=== PATIENT | female | born 1980 | race American Indian/Alaskan Native ===

== ENCOUNTER 2017-07-04 08:07 | Emergency (ER) | payer OTHER ==
[2017-07-04 08:29] VITALS: BP 148/109
[2017-07-04] MEDS ORDERED: TORADOL IM ONE (08:48)
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
--- NOTE | 2017-07-04 09:28 | XRay Report ---
LUMBOSACRAL SPINE, 3 VIEWS: History: Back pain Findings: The vertebral bodies, disk spaces and posterior elements are intact. No compression deformity or malalignment. The SI joints are symmetric and unremarkable. Impression: 1. No evidence for acute injury to the lumbar spine.
== END 2017-07-04 09:57 | disposition home or self-care (01) ==
LOC: ED 08:07
DX: S33.5XXA Sprain of ligaments of lumbar spine, initial encounter (principal); I10 Essential (primary) hypertension; G43.909 Migraine, unspecified, not intractable, without status migrainosus; X58.XXXA Exposure to other specified factors, initial encounter; Y93.89 Activity, other specified; Y92.89 Other specified places as the place of occurrence of the external cause; Y99.8 Other external cause status
CPT/HCPCS: 72100; 96372; 99283; J1885

== ENCOUNTER 2017-11-23 09:22 | Emergency (ER) | payer OTHER ==
--- NOTE | 2017-11-23 09:53 | Emergency Department Report ---
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 She presents with lightheadedness. She felt Just out of sorts. When walking she felt as if her equilibrium was off. She denies paralysis or paresthesias. However she is concerned that her blood pressure was elevated. She takes nifedipine 60 mg once a day. She has history of hypertension. She has a history of peripartum cardiomyopathy. She is followed by a billing collections specialist every 6 months. She also has a history of anemia. She is not compliant with iron therapy due to constipation. She was recently had a physical by her PCP in September. She stated that her blood work was fine at that time. She's had for days of sinus congestion. She has chronic sinusitis. She has recurrent sinus infections as well as allergic rhinitis. She denies headache. Denies chest pain. She just feels "a little off". Mostly feels lightheaded. - Related Data Home Medications Medication Instructions Recorded Confirmed Last Taken Lisinopril/Hydrochlorothiazide 07/16/13 07/16/13 07/16/13 [Zestoretic 10-12.5 mg] Topiramate [Topamax] 25 mg PO 07/16/13 07/16/13 Unknown traMADol [Ultram 50 MG tab] 50 mg 07/16/13 07/16/13 07/16/13 Previous Rx's Medication Instructions Recorded Last Taken Type Acetaminophen/Codeine [Tylenol #3] 1 tab PO Q6H PRN #12 tab 07/16/13 Unknown Rx Ciprofloxacin HCl [Cipro] 500 mg PO Q12H #30 tab 07/16/13 Unknown Rx Azithromycin [Zithromax Z-RACHAEL] 250 mg PO DAILY #6 tablet 01/30/14 Unknown Rx Cyclobenzaprine HCl [Flexeril 5 MG 5 mg PO TID #14 tab 07/04/17 Unknown Rx TAB] Naproxen [Naprosyn] 500 mg PO BID #10 tablet 07/04/17 Unknown Rx Fluticasone [Flonase] 2 spray NS QDAY #1 bottle 11/23/17 Unknown Rx NIFEdipine [] 90 mg PO DAILY #30 tablet 11/23/17 Unknown Rx Allergies Allergy/AdvReac Type Severity Reaction Status Date / Time amoxicillin [Amoxicillin] Allergy Rash Verified 07/16/13 15:38 ED Review of Systems ROS: Stated complaint: HIGH BP Other details as noted in HPI Comment: All other systems reviewed and negative Constitutional: denies: fever Respiratory: denies: cough Cardiovascular: denies: chest pain ED Past Medical Hx - Past Medical History Previous Medical History?: Yes Hx Hypertension: Yes Hx Headaches / Migraines: Yes Additional medical history: Peripartum cardiomyopathy - Surgical History Past Surgical History?: Yes Additional Surgical History: fibriod tumer - Social History Smoking Status: Never Smoker Substance Use Type: None - Medications Home Medications: Home Medications Medication Instructions Recorded Confirmed Last Taken Type Acetaminophen/Codeine [Tylenol #3] 1 tab PO Q6H PRN #12 tab 07/16/13 Unknown Rx Ciprofloxacin HCl [Cipro] 500 mg PO Q12H #30 tab 07/16/13 Unknown Rx Lisinopril/Hydrochlorothiazide 07/16/13 07/16/13 07/16/13 History [Zestoretic 10-12.5 mg] Topiramate [Topamax] 25 mg PO 07/16/13 07/16/13 Unknown History traMADol [Ultram 50 MG tab] 50 mg 07/16/13 07/16/13 07/16/13 History Azithromycin [Zithromax Z-RACHAEL] 250 mg PO DAILY #6 tablet 01/30/14 Unknown Rx Cyclobenzaprine HCl [Flexeril 5 MG 5 mg PO TID #14 tab 07/04/17 Unknown Rx TAB] Naproxen [Naprosyn] 500 mg PO BID #10 tablet 07/04/17 Unknown Rx Fluticasone [Flonase] 2 spray NS QDAY #1 bottle 11/23/17 Unknown Rx NIFEdipine [] 90 mg PO DAILY #30 tablet 11/23/17 Unknown Rx ED Physical Exam - General Limitations: No Limitations General appearance: alert, in no apparent distress - Head Head exam: Present: atraumatic, normocephalic - Eye Eye exam: Present: normal appearance, PERRL, EOMI - ENT ENT exam: Present: normal orophraynx, mucous membranes moist - Neck Neck exam: Present: normal inspection. Absent: meningismus - Respiratory Respiratory exam: Present: normal lung sounds bilaterally. Absent: respiratory distress, wheezes, rales, rhonchi - Cardiovascular Cardiovascular Exam: Present: regular rate, normal rhythm. Absent: systolic murmur, diastolic murmur, rubs, gallop - GI/Abdominal GI/Abdominal exam: Present: soft, normal bowel sounds. Absent: distended, tenderness, guarding, rebound - Extremities Exam Extremities exam: Present: normal inspection - Back Exam Back exam: Present: normal inspection - Neurological Exam Neurological exam: Present: alert, oriented X3, CN II-XII intact, normal gait. Absent: motor sensory deficit - Psychiatric Psychiatric exam: Present: normal affect, normal mood - Skin Skin exam: Present: warm, dry, intact, normal color. Absent: rash ED Course Vital Signs 11/23/17 09:31 Temperature 98.8 F Pulse Rate 87 Respiratory 20 Rate Blood Pressure 160/101 O2 Sat by Pulse 98 Oximetry ED Medical Decision Making - Lab Data Result diagrams: 11/23/17 10:17 11/23/17 10:17 - Medical Decision Making Office Britton is a very pleasant 36-year-old female with history of hypertension, anemia and peripartum cardiomyopathy who presents with lightheadedness. Differential diagnosis includes hypertensive urgency versus anemia versus sinusitis/allergic rhinitis. No indication of CVA. No indication of end organ damage from hypertension. I will increase her nifedipine dose from 60 mg to 90 mg daily. She is still . So continuing Nifedipine would be the optimal treatment at this time. Also prescribed Flonase for chronic sinusitis versus allergic rhinitis. Critical care attestation.: If time is entered above; I have spent that time in minutes in the direct care of this critically ill patient, excluding procedure time. ED Disposition Clinical Impression: Hypertensive urgency, Allergic rhinitis Disposition: - TO HOME OR SELFCARE Is pt being admited?: No Does the pt Need Aspirin: No Condition: Stable Instructions: Hypertension (ED), Sinusitis (ED) Prescriptions: Fluticasone [Flonase] 2 spray NS QDAY #1 bottle NIFEdipine [] 90 mg PO DAILY #30 tablet Referrals: PRIMARY CARE, [Primary Care Provider] - 3-5 Days Forms: Work/School Release Form(ED) Time of Disposition: 11:06
[2017-11-23 10:37] LABS: Basophils # (Auto) 0.1 K/mm3 (0.0-0.1); Basophils % (Auto) 0.8 % (0.0-1.8); Eosinophils # (Auto) 0.1 K/mm3 (0.0-0.4); Eosinophils % (Auto) 2.2 % (0.0-4.3); Hematocrit 34.9 % (30.3-42.9); Hemoglobin 11.6 gm/dl (10.1-14.3); Lymphocytes # (Auto) 2.4 K/mm3 (1.2-5.4); Lymphocytes % (Auto) 35.8 % (13.4-35.0); Mean Corpuscular HGB Conc 33 % (30-34); Mean Corpuscular Hemoglobin 29 pg (28-32); Mean Corpuscular Volume 87 fl (79-97); Monocytes # (Auto) 0.5 K/mm3 (0.0-0.8); Monocytes % (Auto) 7.2 % (0.0-7.3); Platelet Count 266 K/mm3 (140-440); Red Cell Distribution Width 13.4 % (13.2-15.2)
[2017-11-23 10:56] LABS: BUN/Creatinine Ratio 18; Blood Urea Nitrogen 9 mg/dL (7-17); Calcium 9.6 mg/dL (8.4-10.2); Hemolysis Index 5
[2017-11-23 11:22] VITALS: BP 158/92
== END 2017-11-23 11:19 | disposition home or self-care (01) ==
LOC: ED 09:22
DX: I10 Essential (primary) hypertension (principal); J30.9 Allergic rhinitis, unspecified; G43.909 Migraine, unspecified, not intractable, without status migrainosus; Z88.1 Allergy status to other antibiotic agents
CPT/HCPCS: 36415; 80048; 85025; 99283

== ENCOUNTER 2018-11-16 10:23 | Emergency (ER) | payer OTHER ==
[2018-11-16 10:29] VITALS: BP 174/105
[2018-11-16] MEDS ORDERED: NORVASC PO ONE (10:41)
[2018-11-16] MEDS ORDERED: IBUPROFEN PO ONE (10:41)
--- NOTE | 2018-11-16 10:48 | Emergency Department Report ---
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 She is currently lactating. She is currently. Consequently, she has been on nifedipine for the last 3 years. For the past 2 days, she has had elevated pressure readings. Hx of headache. Heaache has been more frequent and persistent. Blood pressure taken at fire department 158/106. Blood pressure here in triage 174/105 -: Gradual, days(s) (2) Location: head Quality: aching, other (throbbing) Consistency: intermittent Improves with: none Worsens with: none Associated Symptoms: denies other symptoms - Related Data Home Medications Medication Instructions Recorded Confirmed Last Taken Lisinopril/Hydrochlorothiazide 07/16/13 07/16/13 07/16/13 [Zestoretic 10-12.5 mg] Topiramate [Topamax] 25 mg PO 07/16/13 07/16/13 Unknown traMADol [Ultram 50 MG tab] 50 mg 07/16/13 07/16/13 07/16/13 Previous Rx's Medication Instructions Recorded Last Taken Type Acetaminophen/Codeine [Tylenol #3] 1 tab PO Q6H PRN #12 tab 07/16/13 Unknown Rx Ciprofloxacin HCl [Cipro] 500 mg PO Q12H #30 tab 07/16/13 Unknown Rx Azithromycin [Zithromax Z-RACHAEL] 250 mg PO DAILY #6 tablet 01/30/14 Unknown Rx Cyclobenzaprine HCl [Flexeril 5 MG 5 mg PO TID #14 tab 07/04/17 Unknown Rx TAB] Naproxen [Naprosyn] 500 mg PO BID #10 tablet 07/04/17 Unknown Rx Fluticasone [Flonase] 2 spray NS QDAY #1 bottle 11/23/17 Unknown Rx NIFEdipine [] 90 mg PO DAILY #30 tablet 11/23/17 Unknown Rx amLODIPine [Norvasc] 5 mg PO DAILY 30 Days #30 tab 11/16/18 Unknown Rx hydroCHLOROthiazide [HCTZ] 25 mg PO QDAY 30 Days #30 tablet 11/16/18 Unknown Rx Allergies Allergy/AdvReac Type Severity Reaction Status Date / Time amoxicillin [Amoxicillin] Allergy Rash Verified 11/16/18 10:24 ED Review of Systems ROS: Stated complaint: HBP Other details as noted in HPI Comment: All other systems reviewed and negative Constitutional: denies: fever, malaise Respiratory: denies: cough Cardiovascular: denies: chest pain ED Past Medical Hx - Past Medical History Previous Medical History?: Yes Hx Hypertension: Yes Hx Headaches / Migraines: Yes Additional medical history: Peripartum cardiomyopathy - Surgical History Additional Surgical History: fibriod tumor - Social History Smoking Status: Never Smoker Substance Use Type: Alcohol, Prescribed - Medications Home Medications: Home Medications Medication Instructions Recorded Confirmed Last Taken Type Acetaminophen/Codeine [Tylenol #3] 1 tab PO Q6H PRN #12 tab 07/16/13 Unknown Rx Ciprofloxacin HCl [Cipro] 500 mg PO Q12H #30 tab 07/16/13 Unknown Rx Lisinopril/Hydrochlorothiazide 07/16/13 07/16/13 07/16/13 History [Zestoretic 10-12.5 mg] Topiramate [Topamax] 25 mg PO 07/16/13 07/16/13 Unknown History traMADol [Ultram 50 MG tab] 50 mg 07/16/13 07/16/13 07/16/13 History Azithromycin [Zithromax Z-RACHAEL] 250 mg PO DAILY #6 tablet 01/30/14 Unknown Rx Cyclobenzaprine HCl [Flexeril 5 MG 5 mg PO TID #14 tab 07/04/17 Unknown Rx TAB] Naproxen [Naprosyn] 500 mg PO BID #10 tablet 07/04/17 Unknown Rx Fluticasone [Flonase] 2 spray NS QDAY #1 bottle 11/23/17 Unknown Rx NIFEdipine [] 90 mg PO DAILY #30 tablet 11/23/17 Unknown Rx amLODIPine [Norvasc] 5 mg PO DAILY 30 Days #30 tab 11/16/18 Unknown Rx hydroCHLOROthiazide [HCTZ] 25 mg PO QDAY 30 Days #30 tablet 11/16/18 Unknown Rx ED Physical Exam - General Limitations: No Limitations General appearance: alert, in no apparent distress - Head Head exam: Present: atraumatic, normocephalic - Eye Eye exam: Present: normal appearance - ENT ENT exam: Present: mucous membranes moist - Neck Neck exam: Present: normal inspection, full ROM - Respiratory Respiratory exam: Present: normal lung sounds bilaterally. Absent: respiratory distress, wheezes, rales, rhonchi - Cardiovascular Cardiovascular Exam: Present: regular rate, normal rhythm, normal heart sounds. Absent: systolic murmur, diastolic murmur, rubs, gallop - GI/Abdominal GI/Abdominal exam: Present: soft, normal bowel sounds. Absent: distended, tenderness, guarding, rebound - Extremities Exam Extremities exam: Present: normal inspection - Back Exam Back exam: Present: normal inspection - Neurological Exam Neurological exam: Present: alert, oriented X3 - Psychiatric Psychiatric exam: Present: normal affect, normal mood - Skin Skin exam: Present: warm, dry, intact, normal color. Absent: rash ED Course Vital Signs 11/16/18 10:27 Temperature 97.7 F Pulse Rate 94 H Respiratory 18 Rate Blood Pressure 174/105 O2 Sat by Pulse 96 Oximetry ED Medical Decision Making - Medical Decision Making 1. Hypertensive urgency, I explained to Ofc. Britton patel nifedipine is not first line therapy for blood pressure management. Considering the age of her child, her daughter is now age 3, she will stop breast-feeding. She states that her daughter only uses the breast-feeding for comfort. I have prescribed amlodipine and hydrochlorothiazide. She will see her PCP a equal splinting in 2 weeks for blood pressure check. 2. History of frequent headaches. Previous history of migraine headache. Headache is typical previous headache. Mild in severity. Ibuprofen provided here in the ED. Critical care attestation.: If time is entered above; I have spent that time in minutes in the direct care of this critically ill patient, excluding procedure time. ED Disposition Clinical Impression: Hypertensive urgency, Tension headache Disposition: DC-01 TO HOME OR SELFCARE Is pt being admited?: No Does the pt Need Aspirin: No Condition: Stable Instructions: Hypertension (ED), Tension Headache (ED) Prescriptions: hydroCHLOROthiazide [HCTZ] 25 mg PO QDAY 30 Days #30 tablet amLODIPine [Norvasc] 5 mg PO DAILY 30 Days #30 tab Referrals: PRIMARY CARE, [Referring] - 7-10 days
== END 2018-11-16 10:56 | disposition home or self-care (01) ==
LOC: ED 10:23
DX: I16.0 Hypertensive urgency (principal); G44.209 Tension-type headache, unspecified, not intractable; I10 Essential (primary) hypertension; Z88.1 Allergy status to other antibiotic agents
CPT/HCPCS: 99282

== ENCOUNTER 2019-01-20 07:40 | Emergency (ER) | payer OTHER ==
[2019-01-20 07:58] VITALS: BP 137/101
[2019-01-20] MEDS ORDERED: IBUPROFEN PO ONE (07:58)
--- NOTE | 2019-01-20 08:01 | Emergency Department Report ---
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 Diffuse swelling of the ankle noted. States she also twisted her knee. To ER via EMS. VSS. neurovascular intact on arrival. ED Past Medical Hx - Past Medical History Previous Medical History?: Yes Hx Hypertension: Yes Hx Headaches / Migraines: Yes Additional medical history: Peripartum cardiomyopathy - Surgical History Past Surgical History?: Yes Additional Surgical History: fibriod tumor, tubal ligation, UFE - Family History Family history: no significant - Social History Smoking Status: Never Smoker Substance Use Type: None - Medications Home Medications: Home Medications Medication Instructions Recorded Confirmed Last Taken Type Acetaminophen/Codeine [Tylenol #3] 1 tab PO Q6H PRN #12 tab 07/16/13 Unknown Rx Ciprofloxacin HCl [Cipro] 500 mg PO Q12H #30 tab 07/16/13 Unknown Rx Lisinopril/Hydrochlorothiazide 07/16/13 07/16/13 07/16/13 History [Zestoretic 10-12.5 mg] Topiramate [Topamax] 25 mg PO 07/16/13 07/16/13 Unknown History traMADol [Ultram 50 MG tab] 50 mg 07/16/13 07/16/13 07/16/13 History Azithromycin [Zithromax Z-RACHAEL] 250 mg PO DAILY #6 tablet 01/30/14 Unknown Rx Cyclobenzaprine HCl [Flexeril 5 MG 5 mg PO TID #14 tab 07/04/17 Unknown Rx TAB] Naproxen [Naprosyn] 500 mg PO BID #10 tablet 07/04/17 Unknown Rx Fluticasone [Flonase] 2 spray NS QDAY #1 bottle 11/23/17 Unknown Rx NIFEdipine [] 90 mg PO DAILY #30 tablet 11/23/17 Unknown Rx amLODIPine [Norvasc] 5 mg PO DAILY 30 Days #30 tab 11/16/18 Unknown Rx hydroCHLOROthiazide [HCTZ] 25 mg PO QDAY 30 Days #30 tablet 11/16/18 Unknown Rx ED Review of Systems ROS: Stated complaint: TWISTED (R)ANKLE Other details as noted in HPI Comment: All other systems reviewed and negative Physical Exam - Physical Exam Vital Signs: Vital Signs 01/20/19 07:57 Temperature 98.2 F Pulse Rate 82 Respiratory 16 Rate Blood Pressure 137/101 [Left] O2 Sat by Pulse 100 Oximetry Physical Exam: alert and oriented no focal neuro def s1s2 lungs cta abd soft non tender dp plus 2 bilateral diffuse swelling r ankle no pain on joint lines of knee rapid cap refill RLE ED Course Vital Signs 01/20/19 07:57 Temperature 98.2 F Pulse Rate 82 Respiratory 16 Rate Blood Pressure 137/101 [Left] O2 Sat by Pulse 100 Oximetry ED Medical Decision Making - Radiology Data Radiology results: report reviewed, image reviewed - Medical Decision Making xray noted splint/crutches medicated for pain RLE neurovasc intact before and after splint dc home with ortho follow up Vital Signs 01/20/19 01/20/19 07:57 08:17 Temperature 98.2 F Pulse Rate 82 Respiratory 16 18 Rate Blood Pressure 137/101 [Left] O2 Sat by Pulse 100 Oximetry - Differential Diagnosis sp fall ro fracture Critical care attestation.: If time is entered above; I have spent that time in minutes in the direct care of this critically ill patient, excluding procedure time. ED Disposition Clinical Impression: Tibia fracture, Knee pain Disposition: DC-01 TO HOME OR SELFCARE Is pt being admited?: No Does the pt Need Aspirin: No Condition: Stable Instructions: Leg Fracture (ED) Additional Instructions: NON WEIGHT BEARING SPLINT/CRUTCHES ICE/REST/ELEVATE RLE MOTRIN OR TYLENOL FOR PAIN FOLLOW UP WITH ORTHO HOMERO I RECOMMEND FOLLOWING UP WITH EMPLOYER SINCE THIS HAPPENED WHILE AT WORK. RETURN TO WORK WHEN CLEARED BY ORTHO OR PER YOUR JOB INSTRUCTIONS. YOUR BLOOD PRESSURE WAS ELEVATED TODAY WHEN IN PAIN--- PLEASE MONITOR YOUR BLOOD PRESSURE Referrals: LUIS ALBERTO GARRETT MD [Staff Physician] - 3-5 Days Forms: Work/School Release Form(ED) Time of Disposition: 09:01
--- NOTE | 2019-01-20 08:39 | XRay Report ---
BILATERAL KNEES, 3 VIEWS INDICATION: Bilateral knee pain after fall. COMPARISON: None. IMPRESSION: No acute osseous or soft tissue abnormality. No significant DJD. RIGHT ANKLE, 3 VIEWS INDICATION: Right ankle pain after fall. COMPARISON: None. IMPRESSION: A subtle nondisplaced oblique fracture in the distal fibula is identified just proximal to the ankle joint. The distal tibia and talar dome are intact. Mild lateral soft tissue swelling is noted. No significant DJD. Signer Name: Hardy Martin Jr, MD Signed: 01/20/2019 8:34 AM Workstation Name: [id number]
[2019-01-20] MEDS ORDERED: TORADOL IM ONE (09:58)
[2019-01-20] MEDS ORDERED: PERCOCET 5/325 PO ONE (09:58)
== END 2019-01-20 11:18 | disposition home or self-care (01) ==
LOC: ED 07:40
DX: S82.201A Unspecified fracture of shaft of right tibia, initial encounter for closed fracture (principal); I10 Essential (primary) hypertension; G43.909 Migraine, unspecified, not intractable, without status migrainosus; Z98.51 Tubal ligation status; Z79.899 Other long term (current) drug therapy; Z88.1 Allergy status to other antibiotic agents; W18.39XA Other fall on same level, initial encounter; Y93.89 Activity, other specified; Y92.89 Other specified places as the place of occurrence of the external cause; Y99.8 Other external cause status
CPT/HCPCS: 29515; 73562; 73610; 96372; 99284; J1885

== ENCOUNTER 2019-08-10 11:02 | Emergency (ER) | payer BC, OTHER ==
--- NOTE | 2019-08-10 13:02 | Event Note ---
ED Screening Note ED Screening Note: pt presents with dizziness/lightheadedness that began last night states that occasional it feels like the room spinning bilateral temporal headache no n/v/d no vision changes no numbness or weakness no recent illness LNMP: two weeks ago PMHx HTN -amlodipine, took this morning began taking lorazepam a week ago, took it two days ago allergy: amoxicillin This initial assessment/diagnostic orders/clinical plan/treatment(s) is/are subject to change based on patients health status, clinical progression and re- assessment by fellow clinical providers in the ED. Further treatment and workup at subsequent clinical providers discretion. Patient/guardian urged not to elope from the ED as their condition may be serious if not clinically assessed and managed. Initial orders include: UA, urine preg, EKG, labs
[2019-08-10] MEDS ORDERED: MECLIZINE 25 MG TAB PO ONE (13:03)
[2019-08-10] MEDS ORDERED: SODIUM CHLORIDE 0.9% 1000 ML 1,000 ML IV ONE (13:03)
[2019-08-10 13:48] LABS: Bacteria,Urine 1+ /HPF (Negative); Bilirubin,Urine NEG (Negative); Blood,Urine NEG (Negative); Color,Urine Yellow (Yellow); Mucus,Urine FEW /HPF; Protein,Urine <15 mg/dL mg/dL (Negative); Urobilinogen,Urine < 2.0 mg/dL (<2.0); WBC,Urine < 1.0 /HPF (0.0-6.0)
[2019-08-10 13:51] LABS: HCG Qualitative,Urine Negative (Negative)
[2019-08-10 14:26] LABS: Basophils # (Auto) 0.1 K/mm3 (0.0-0.1); Basophils % (Auto) 0.7 % (0.0-1.8); Eosinophils # (Auto) 0.1 K/mm3 (0.0-0.4); Hematocrit 37.5 % (30.3-42.9); Hemoglobin 12.4 gm/dl (10.1-14.3); Lymphocytes # (Auto) 2.8 K/mm3 (1.2-5.4); Lymphocytes % (Auto) 38.5 % (13.4-35.0); Mean Corpuscular HGB Conc 33 % (30-34); Mean Corpuscular Volume 88 fl (79-97); Monocytes # (Auto) 0.4 K/mm3 (0.0-0.8); Monocytes % (Auto) 5.1 % (0.0-7.3); Platelet Count 290 K/mm3 (140-440); Red Blood Count 4.28 M/mm3 (3.65-5.03); Red Cell Distribution Width 13.2 % (13.2-15.2)
[2019-08-10 14:50] LABS: Alanine Aminotransferase 11 units/L (7-56); Albumin 4.5 g/dL (3.9-5); BUN/Creatinine Ratio 15; Blood Urea Nitrogen 9 mg/dL (7-17); Calcium 9.8 mg/dL (8.4-10.2); Hemolysis Index 58
--- NOTE | 2019-08-10 17:03 | Cat Scan Report ---
CT HEAD WITHOUT CONTRAST INDICATION : headache and dizziness. TECHNIQUE: Axial, coronal and sagittal CT imaging was performed from the skull apex through the skul l base without contrast. All CT scans at this location are performed using CT dose reduction for ALA RA by means of automated exposure control. COMPARISON: None available. FINDINGS: PARENCHYMA: No mass, midline shift, hemorrhage, extraaxial collection or acute territorial infarctio n. VENTRICLES: Symmetric and normal in size. SOFT TISSUES: No significant abnormality of the included soft tissues/orbits. BONES: No acute osseous abnormality. SINUSES: No significant abnormality. ADDITIONAL FINDINGS: None. IMPRESSION: 1. No acute intracranial abnormality. Signer Name: Westley Michelle MD Signed: 08/10/2019 4:59 PM Workstation Name: [id number]
--- NOTE | 2019-08-10 17:22 | Emergency Department Report ---
ED Dizziness HPI - General Chief Complaint: Headache Stated Complaint: GENERAL ILLNESS Time Seen by Provider: 08/10/19 12:57 Source: patient Mode of arrival: Ambulatory Limitations: No Limitations - History of Present Illness Initial Comments: This is a 38-year-old female nontoxic, well nourished in appearance, no acute signs of distress presents to the ED with c/o of dizziness and headache. Patient describes headache as diffuse with level of 3 out of 10. Patient denies thunderclap headache. Patient denies any radiation of pain. Patient denies any head trauma. Patient denies any visual changes. Patient denies worse headache. Patient stated that darkness makes headache better and bright lights make the headache worse. Patient stated the dizziness is worsened with position change. Patient denies any numbness, tingling, headache, stiff neck, chest pain, shortness of breathe, numbness or tingling. Denies any visual changes or blurry vision. Stated allergies to amox. MD Complaint: dizziness, lightheadedness, other (headache) -: days(s) Timing: gradual onset Description: sense of movement, lightheadedness History of Same: Yes History of Trauma: No Severity: mild Improves With: remaining still Worsens With: position Associated Symptoms: denies other symptoms. denies: ataxia, chest pain, confusion, cough, diaphoresis, fever/chills, loss of appetite, malaise, rash, seizure, shortness of breath, syncope, weakness - Related Data Home Medications Medication Instructions Recorded Confirmed Last Taken Lisinopril/Hydrochlorothiazide 07/16/13 07/16/13 07/16/13 [Zestoretic 10-12.5 mg] Topiramate [Topamax] 25 mg PO 07/16/13 07/16/13 Unknown traMADoL [Ultram 50 MG tab] 50 mg 07/16/13 07/16/13 07/16/13 Previous Rx's Medication Instructions Recorded Last Taken Type Acetaminophen/Codeine [Tylenol #3] 1 tab PO Q6H PRN #12 tab 07/16/13 Unknown Rx Ciprofloxacin HCl [Cipro] 500 mg PO Q12H #30 tab 07/16/13 Unknown Rx Azithromycin [Zithromax Z-RACHAEL] 250 mg PO DAILY #6 tablet 01/30/14 Unknown Rx Cyclobenzaprine HCl [Flexeril 5 MG 5 mg PO TID #14 tab 07/04/17 Unknown Rx TAB] Naproxen [Naprosyn] 500 mg PO BID #10 tablet 07/04/17 Unknown Rx Fluticasone [Flonase] 2 spray NS QDAY #1 bottle 11/23/17 Unknown Rx NIFEdipine [] 90 mg PO DAILY #30 tablet 11/23/17 Unknown Rx amLODIPine 5 mg PO DAILY 30 Days #30 tab 11/16/18 Unknown Rx hydroCHLOROthiazide [HCTZ] 25 mg PO QDAY 30 Days #30 tablet 11/16/18 Unknown Rx Meclizine [Antivert] 12.5 mg PO BID PRN #10 tablet 08/10/19 Unknown Rx Allergies Allergy/AdvReac Type Severity Reaction Status Date / Time amoxicillin [Amoxicillin] Allergy Rash Verified 11/16/18 10:24 ED Review of Systems ROS: Stated complaint: GENERAL ILLNESS Other details as noted in HPI Constitutional: denies: chills, fever Eyes: denies: eye pain, eye discharge, vision change ENT: denies: ear pain, throat pain Respiratory: denies: cough, shortness of breath, wheezing Cardiovascular: denies: chest pain, palpitations Endocrine: no symptoms reported Gastrointestinal: denies: abdominal pain, nausea, diarrhea Genitourinary: denies: urgency, dysuria, discharge Musculoskeletal: denies: back pain, joint swelling, arthralgia Skin: denies: rash, lesions Neurological: headache, vertigo. denies: weakness, paresthesias Psychiatric: denies: anxiety, depression Hematological/Lymphatic: denies: easy bleeding, easy bruising ED Past Medical Hx - Past Medical History Previous Medical History?: Yes Hx Hypertension: Yes Hx Headaches / Migraines: Yes Additional medical history: Peripartum cardiomyopathy - Surgical History Past Surgical History?: Yes Additional Surgical History: fibriod tumor, tubal ligation, UFE - Social History Smoking Status: Never Smoker Substance Use Type: None - Medications Home Medications: Home Medications Medication Instructions Recorded Confirmed Last Taken Type Acetaminophen/Codeine [Tylenol #3] 1 tab PO Q6H PRN #12 tab 07/16/13 Unknown Rx Ciprofloxacin HCl [Cipro] 500 mg PO Q12H #30 tab 07/16/13 Unknown Rx Lisinopril/Hydrochlorothiazide 07/16/13 07/16/13 07/16/13 History [Zestoretic 10-12.5 mg] Topiramate [Topamax] 25 mg PO 07/16/13 07/16/13 Unknown History traMADoL [Ultram 50 MG tab] 50 mg 07/16/13 07/16/13 07/16/13 History Azithromycin [Zithromax Z-RACHAEL] 250 mg PO DAILY #6 tablet 01/30/14 Unknown Rx Cyclobenzaprine HCl [Flexeril 5 MG 5 mg PO TID #14 tab 07/04/17 Unknown Rx TAB] Naproxen [Naprosyn] 500 mg PO BID #10 tablet 07/04/17 Unknown Rx Fluticasone [Flonase] 2 spray NS QDAY #1 bottle 11/23/17 Unknown Rx NIFEdipine [] 90 mg PO DAILY #30 tablet 11/23/17 Unknown Rx amLODIPine 5 mg PO DAILY 30 Days #30 tab 11/16/18 Unknown Rx hydroCHLOROthiazide [HCTZ] 25 mg PO QDAY 30 Days #30 tablet 11/16/18 Unknown Rx Meclizine [Antivert] 12.5 mg PO BID PRN #10 tablet 08/10/19 Unknown Rx ED Physical Exam - General Limitations: No Limitations General appearance: alert, in no apparent distress - Head Head exam: Present: atraumatic, normocephalic - Eye Eye exam: Present: normal appearance, PERRL, EOMI - ENT ENT exam: Present: mucous membranes moist - Neck Neck exam: Present: normal inspection, full ROM. Absent: tenderness, meningismus, lymphadenopathy - Respiratory Respiratory exam: Present: normal lung sounds bilaterally. Absent: respiratory distress, wheezes, rales, rhonchi, stridor, chest wall tenderness, accessory muscle use, decreased breath sounds, prolonged expiratory - Cardiovascular Cardiovascular Exam: Present: regular rate, normal rhythm, normal heart sounds. Absent: irregular rhythm, systolic murmur, diastolic murmur, rubs, gallop - Extremities Exam Extremities exam: Present: normal inspection, full ROM - Back Exam Back exam: Present: normal inspection, full ROM. Absent: tenderness, CVA tenderness (R), CVA tenderness (L), muscle spasm, paraspinal tenderness, vertebral tenderness, rash noted - Neurological Exam Neurological exam: Present: alert, oriented X3, normal gait - Expanded Neurological Exam Expanded Patient oriented to: Present: person, place, time Cranial nerves: EOM's Intact: Normal, Facial Sensation: Normal Cerebellar function: Finger to Nose: Normal Upper motor neuron: Pronator Drift: Normal, Sensory Extinction: Normal Motor strength exam: RUE: 5, LUE: 5, RLE: 5, LLE: 5 Best Eye Response ([place]): (4) open spontaneously Best Motor Response ([place]): (6) obeys commands Best Verbal Response ([place]): (5) oriented [place] Total: 15 - Psychiatric Psychiatric exam: Present: normal affect, normal mood - Skin Skin exam: Present: warm, dry, intact, normal color. Absent: rash ED Course Vital Signs 08/10/19 08/10/19 13:00 17:18 Temperature 98.2 F 98.3 F Pulse Rate 116 H 95 H Respiratory 18 18 Rate Blood Pressure 157/105 160/103 O2 Sat by Pulse 99 98 Oximetry - Reevaluation(s) Reevaluation #1: 08/10/19 17:34 Patient is speaking in full sentences with no signs of distress noted. ED Medical Decision Making - Lab Data Result diagrams: 08/10/19 13:18 08/10/19 13:18 - Medical Decision Making This is a 25-year-old female that presents with dizziness and headache. Patient is stable and was examined by me. EKG is normal sinus rhythm with no ST abnormalities. Labs are unremarkable. Urine obtained. Orthostatic vital signs obtained and within normal limits. Patient received 1 L of normal saline which she stated his symptoms of dizziness has subsided and resolved. Patient is neurologically stable. CT scan is unremarkable. Labs unremarkable. There is no stiff neck or neck pain. Vital signs are stable. Patient is afebrile. Patient received antivert and 1 L of normal saline which the patient stated that he adache has subsided and resolved. Orthostatic vital signs obtained. Patient was referred to Follow-up with a primary care/neurologist doctor in 3-5 days or if symptoms worsen and continue return to emergency room as soon as possible. At time of discharge, the patient does not seem toxic or ill in appearance. No acute signs of distress noted. Patient agrees to discharge treatment plan of care. No further questions noted by the patient. Critical care attestation.: If time is entered above; I have spent that time in minutes in the direct care of this critically ill patient, excluding procedure time. ED Disposition Clinical Impression: Dizziness Headache Qualifiers: Headache type: unspecified Headache chronicity pattern: episodic headache Intractability: not intractable Qualified Code(s): R51 - Headache Disposition: DC-01 TO HOME OR SELFCARE Is pt being admited?: No Does the pt Need Aspirin: No Condition: Stable Instructions: Dizziness (ED), Acute Headache (ED) Additional Instructions: Follow-up with a primary care doctor in 3-5 days or if symptoms worsen and continue return to emergency room as soon as possible. Follow-up with a primary care/neurologist doctor in 3-5 days or if symptoms worsen and continue return to emergency room as soon as possible. Prescriptions: Meclizine [Antivert] 12.5 mg PO BID PRN #10 tablet PRN Reason: Vertigo Referrals: ARTURO RIVERO MD [Primary Care Provider] - 3-5 Days PRIMARY CAREMD [Referring] - 3-5 Days SAPPHIRE HOLT MD [Staff Physician] - 3-5 Days [facility] [Outside] - 3-5 Days Forms: Work/School Release Form(ED)
[2019-08-10 17:32] VITALS: BP 160/103
== END 2019-08-10 18:50 | disposition home or self-care (01) ==
LOC: ED 11:02
DX: R51 Headache (principal); R42 Dizziness and giddiness; I10 Essential (primary) hypertension; G43.909 Migraine, unspecified, not intractable, without status migrainosus; Z98.51 Tubal ligation status; Z88.0 Allergy status to penicillin; Z88.1 Allergy status to other antibiotic agents
CPT/HCPCS: 36415; 70450; 80053; 81001; 81025; 83735; 84100; 85025; 93005; 93010; 96360; 99284; J7030

== ENCOUNTER 2020-10-18 14:38 | Emergency (ER) | payer BC ==
--- NOTE | 2020-10-18 16:32 | Event Note ---
ED Screening Note Date of service: 10/18/20 Time: 16:31 ED Screening Note: Patient complains of elevated blood pressure with headache and dizziness today This initial assessment/diagnostic orders/clinical plan/treatment(s) is/are subject to change based on patients health status, clinical progression and re- assessment by fellow clinical providers in the ED. Further treatment and workup at subsequent clinical providers discretion. Patient/guardian urged not to elope from the ED as their condition may be serious if not clinically assessed and managed. Initial orders include: Labs EKG
[2020-10-18 17:03] VITALS: BP 191/112
[2020-10-18 17:34] LABS: Basophils % (Auto) 0.4 % (0.0-1.8); Eosinophils # (Auto) 0.3 K/mm3 (0.0-0.4); Eosinophils % (Auto) 3.3 % (0.0-4.3); Hematocrit 38.4 % (30.3-42.9); Hemoglobin 12.6 gm/dl (10.1-14.3); Lymphocytes # (Auto) 3.4 K/mm3 (1.2-5.4); Lymphocytes % (Auto) 43.1 % (13.4-35.0); Mean Corpuscular HGB Conc 33 % (30-34); Mean Corpuscular Volume 90 fl (79-97); Monocytes # (Auto) 0.5 K/mm3 (0.0-0.8); Platelet Count 252 K/mm3 (140-440); Red Blood Count 4.27 M/mm3 (3.65-5.03); Red Cell Distribution Width 13.3 % (13.2-15.2)
[2020-10-18 17:55] LABS: Alanine Aminotransferase 12 units/L (7-56); Albumin 4.6 g/dL (3.9-5); Blood Urea Nitrogen 9 mg/dL (7-17); Calcium 9.7 mg/dL (8.4-10.2); Hemolysis Index 14
[2020-10-18 17:57] LABS: BUN/Creatinine Ratio 15
[2020-10-18] MEDS ORDERED: hydrALAZINE 25 MG TAB PO ONE (20:45)
[2020-10-18] MEDS ORDERED: ACETAMINOPHEN 500 MG TAB PO ONE (20:47)
[2020-10-18] MEDS ORDERED: diphenhydrAMINE 25 MG CAP PO ONE (21:20)
--- NOTE | 2020-10-18 21:21 | Emergency Department Report ---
ED General Adult HPI - General Chief complaint: High BP Stated complaint: ELEVATED BLOOD PRESSURE Source: patient Mode of arrival: Ambulatory Limitations: No Limitations - History of Present Illness Initial comments: Pt is a 39 y/o aaf with hx of htn and recurring sinusitis and sinus headache who presents for sinus headache since this am, pt is followed by primary care Dr. Hinds and ENT. headache is in usual location , and intensity. pain is sharp pressure 5/10 exacerbated by movement and position, pt denies cp no n/v no fever or chills no diaphoresis. pt is a/ox 3, ambulatory with steady gait. - Related Data Home Medications Medication Instructions Recorded Confirmed Last Taken Lisinopril/Hydrochlorothiazide 07/16/13 07/16/13 07/16/13 [Zestoretic 10-12.5 mg] Topiramate [Topamax] 25 mg PO 07/16/13 07/16/13 Unknown traMADoL [Ultram 50 MG tab] 50 mg 07/16/13 07/16/13 07/16/13 Previous Rx's Medication Instructions Recorded Last Taken Type Acetaminophen/Codeine [Tylenol #3] 1 tab PO Q6H PRN #12 tab 07/16/13 Unknown Rx Ciprofloxacin HCl [Cipro] 500 mg PO Q12H #30 tab 07/16/13 Unknown Rx Azithromycin [Zithromax Z-RACHAEL] 250 mg PO DAILY #6 tablet 01/30/14 Unknown Rx Cyclobenzaprine HCl [Flexeril 5 MG 5 mg PO TID #14 tab 07/04/17 Unknown Rx TAB] Naproxen [Naprosyn] 500 mg PO BID #10 tablet 07/04/17 Unknown Rx Fluticasone [Flonase] 2 spray NS QDAY #1 bottle 11/23/17 Unknown Rx NIFEdipine [] 90 mg PO DAILY #30 tablet 11/23/17 Unknown Rx amLODIPine 5 mg PO DAILY 30 Days #30 tab 11/16/18 Unknown Rx hydroCHLOROthiazide [HCTZ] 25 mg PO QDAY 30 Days #30 tablet 11/16/18 Unknown Rx Meclizine [Antivert] 12.5 mg PO BID PRN #10 tablet 08/10/19 Unknown Rx Acetaminophen [Non-Aspirin Pain 1,000 mg PO Q6H PRN #30 tablet 10/18/20 Unknown Rx Relief] Clindamycin [Clindamycin CAP] 300 mg PO Q8H 7 Days #21 cap 10/18/20 Unknown Rx diphenhydrAMINE [Benadryl CAP] 25 mg PO Q8HR PRN #30 capsule 10/18/20 Unknown Rx predniSONE [Deltasone] 20 mg PO QDAY #5 tab 10/18/20 Unknown Rx Allergies Allergy/AdvReac Type Severity Reaction Status Date / Time amoxicillin [Amoxicillin] Allergy Rash Verified 10/18/20 14:59 ED Review of Systems ROS: Stated complaint: ELEVATED BLOOD PRESSURE Other details as noted in HPI Constitutional: denies: chills, fever Eyes: denies: eye pain, vision change ENT: ear pain, throat pain, congestion, other (sinus pain pressure ) Respiratory: denies: cough, shortness of breath, wheezing Cardiovascular: denies: chest pain, palpitations Endocrine: no symptoms reported, intolerance to heat Gastrointestinal: denies: abdominal pain, nausea, vomiting, diarrhea Genitourinary: denies: urgency, dysuria, discharge Musculoskeletal: as per HPI Skin: denies: rash, lesions Neurological: headache. denies: weakness, numbness, paresthesias, confusion, abnormal gait, vertigo Psychiatric: denies: anxiety, depression Hematological/Lymphatic: denies: easy bleeding, easy bruising ED Past Medical Hx - Past Medical History Hx Hypertension: Yes Hx Headaches / Migraines: Yes Additional medical history: Peripartum cardiomyopathy - Surgical History Additional Surgical History: fibriod tumor, tubal ligation, UFE - Social History Smoking Status: Never Smoker Substance Use Type: None - Medications Home Medications: Home Medications Medication Instructions Recorded Confirmed Last Taken Type Acetaminophen/Codeine [Tylenol #3] 1 tab PO Q6H PRN #12 tab 07/16/13 Unknown Rx Ciprofloxacin HCl [Cipro] 500 mg PO Q12H #30 tab 07/16/13 Unknown Rx Lisinopril/Hydrochlorothiazide 07/16/13 07/16/13 07/16/13 History [Zestoretic 10-12.5 mg] Topiramate [Topamax] 25 mg PO 07/16/13 07/16/13 Unknown History traMADoL [Ultram 50 MG tab] 50 mg 07/16/13 07/16/13 07/16/13 History Azithromycin [Zithromax Z-RACHAEL] 250 mg PO DAILY #6 tablet 01/30/14 Unknown Rx Cyclobenzaprine HCl [Flexeril 5 MG 5 mg PO TID #14 tab 07/04/17 Unknown Rx TAB] Naproxen [Naprosyn] 500 mg PO BID #10 tablet 07/04/17 Unknown Rx Fluticasone [Flonase] 2 spray NS QDAY #1 bottle 11/23/17 Unknown Rx NIFEdipine [] 90 mg PO DAILY #30 tablet 11/23/17 Unknown Rx amLODIPine 5 mg PO DAILY 30 Days #30 tab 11/16/18 Unknown Rx hydroCHLOROthiazide [HCTZ] 25 mg PO QDAY 30 Days #30 tablet 11/16/18 Unknown Rx Meclizine [Antivert] 12.5 mg PO BID PRN #10 tablet 08/10/19 Unknown Rx Acetaminophen [Non-Aspirin Pain 1,000 mg PO Q6H PRN #30 tablet 10/18/20 Unknown Rx Relief] Clindamycin [Clindamycin CAP] 300 mg PO Q8H 7 Days #21 cap 10/18/20 Unknown Rx diphenhydrAMINE [Benadryl CAP] 25 mg PO Q8HR PRN #30 capsule 10/18/20 Unknown Rx predniSONE [Deltasone] 20 mg PO QDAY #5 tab 10/18/20 Unknown Rx ED Physical Exam - General Limitations: No Limitations General appearance: alert, in no apparent distress - Head Head exam: Present: atraumatic, normocephalic - Eye Eye exam: Present: PERRL, EOMI Pupils: Present: normal accommodation - ENT ENT exam: Present: normal exam, mucous membranes moist, normal external ear exam - Expanded ENT Exam Expanded Ear exam: Present: normal external inspection, other (turbinates boggy clear post nasal drip bilat maxillary sinus tenderness ) TM/Canal exam: Erythema: Right TM, Left TM, Canal Tenderness: Right TM, Left TM Mouth exam: Absent: trismus Throat exam: Positive: other (uvula midline airway patent no exudate no lesions ). Negative: tonsillar erythema, tonsillomegaly, tonsillar exudate, R peritonsillar mass, L peritonsillar mass - Neck Neck exam: Present: normal inspection, tenderness, full ROM, lymphadenopathy - Expanded Neck Exam Expanded Neck exam: Absent: tenderness, midline deformity, anterior neck swelling, thyroid mass, carotid bruit, tracheal deviation - Respiratory Respiratory exam: Present: normal lung sounds bilaterally. Absent: respiratory distress, wheezes, rales, rhonchi, stridor - Cardiovascular Cardiovascular Exam: Present: regular rate, normal rhythm, normal heart sounds. Absent: systolic murmur, diastolic murmur, rubs, gallop - GI/Abdominal GI/Abdominal exam: Present: soft, normal bowel sounds. Absent: distended, tenderness, bruit, hernia - Rectal Rectal exam: Present: deferred - Extremities Exam Extremities exam: Present: normal inspection, full ROM, normal capillary refill. Absent: tenderness - Back Exam Back exam: Present: normal inspection, full ROM. Absent: tenderness, CVA tenderness (R), CVA tenderness (L) - Neurological Exam Neurological exam: Present: alert, oriented X3, CN II-XII intact, normal gait, reflexes normal. Absent: motor sensory deficit - Expanded Neurological Exam Expanded Patient oriented to: Present: person, place, time Speech: Present: fluid speech Cranial nerves: EOM's Intact: Normal, Gag Reflex: Normal, Tongue Deviation: Normal, Nystagmus: Normal, Facial Sensation: Normal Cerebellar function: Finger to Nose: Normal Motor strength exam: RUE: 5, LUE: 5, RLE: 5, LLE: 5 Best Eye Response ([place]): (4) open spontaneously Best Motor Response ([place]): (6) obeys commands Best Verbal Response (Robin): (5) oriented [place] Total: 15 - Psychiatric Psychiatric exam: Present: normal affect, normal mood - Skin Skin exam: Present: warm, dry, intact, normal color. Absent: rash ED Course Vital Signs 10/18/20 10/18/20 14:58 17:02 Temperature 98.7 F Pulse Rate 89 80 Respiratory 20 Rate Blood Pressure 177/115 Blood Pressure 191/112 [Right] O2 Sat by Pulse 100 Oximetry ED Medical Decision Making - Lab Data Result diagrams: 10/18/20 16:37 10/18/20 16:37 Labs 10/18/20 10/18/20 16:37 16:37 WBC 7.9 RBC 4.27 Hgb 12.6 Hct 38.4 MCV 90 MCH 30 MCHC 33 RDW 13.3 Plt Count 252 Lymph % (Auto) 43.1 H [place]ack[place] % (Auto) 6.0 Eos % (Auto) 3.3 Baso % (Auto) 0.4 Lymph # (Auto) 3.4 [place] # (Auto) 0.5 Eos # (Auto) 0.3 Baso # (Auto) 0.0 Seg Neutrophils % 47.2 Seg Neutrophils # 3.7 Sodium 136 L Potassium 3.9 Chloride 100.8 Carbon Dioxide 22 Anion Gap 17 BUN 9 Creatinine 0.6 Estimated GFR > 60 BUN/Creatinine Ratio 15 Glucose 83 Calcium 9.7 Total Bilirubin 0.30 AST 14 ALT 12 Alkaline Phosphatase 75 Troponin T < 0.010 Total Protein 7.9 Albumin 4.6 Albumin/Globulin Ratio 1.4 - Medical Decision Making pt declines ekg or cxr, states pain /Bp is improved, there is no loss of vision ,no fever or chills, no n/v, pt ambulatory with steady gait , plan take bp medications as prescribed,follow up with DR Rodriguez in am as scheduled , return to ed if symptoms worsen. pt verbalized agreement and understanding of discharge plan. Critical care attestation.: If time is entered above; I have spent that time in minutes in the direct care of this critically ill patient, excluding procedure time. ED Disposition Clinical Impression: Sinus headache HTN (hypertension) Qualifiers: Hypertension type: essential hypertension Qualified Code(s): I10 - Essential (primary) hypertension Disposition: DC- TO HOME OR SELFCARE Is pt being admited?: No Does the pt Need Aspirin: No Condition: Stable Instructions: Hypertension (ED), Hypertension, Adult, [id number], Managing Your Hypertension, Sinus Headache Prescriptions: diphenhydrAMINE [Benadryl CAP] 25 mg PO Q8HR PRN #30 capsule PRN Reason: headache congestion Clindamycin [Clindamycin CAP] 300 mg PO Q8H 7 Days #21 cap predniSONE [Deltasone] 20 mg PO QDAY #5 tab Acetaminophen [Non-Aspirin Pain Relief] 1,000 mg PO Q6H PRN #30 tablet PRN Reason: Headache Referrals: ARTURO RODRIGUEZ MD [Primary Care Provider] - 3-5 Days Forms: Work/School Release Form(ED) Time of Disposition: 21:45
--- NOTE | 2020-10-20 17:32 | Electrocardiograph Report ---
[facility] Test Date: 2020-10-18 Test Time: 22:10:44 Pat Name: TOBIN DIALLO Department: Room: Gender: F Garage Attendant: EL : 1980 Requested By: ELIDA ANAND Order Number: [id number] Reading MD: Toan Weathers Measurements Intervals [place] Rate: 75 P: 59 [place]: 136 QRS: 51 QRSD: 78 T: 36 QT: 387 QTc: 434 Interpretive Statements Sinus rhythm Consider left ventricular hypertrophy No previous ECG available for comparison Electronically Signed On 10-20-2020 17:32:34 EDT by Toan Weathers
== END 2020-10-18 22:28 | disposition home or self-care (01) ==
LOC: ED 14:38
DX: I10 Essential (primary) hypertension (principal); Z79.899 Other long term (current) drug therapy; Z88.1 Allergy status to other antibiotic agents
CPT/HCPCS: 36415; 80053; 84484; 85025; 93005; 99283

== ENCOUNTER 2021-03-02 19:52 | Emergency (ER) | payer BC ==
[2021-03-02 22:17] VITALS: BP 133/94
--- NOTE | 2021-03-03 00:21 | Emergency Department Report ---
ED General Adult HPI - General Chief complaint: Back Pain/Injury Stated complaint: BUMP IN BACK Time Seen by Provider: 03/02/21 22:38 Source: patient Mode of arrival: Ambulatory Limitations: No Limitations - History of Present Illness Initial comments: 40-year-old -[place] female patient presents with complaints of right mid back pain starting yesterday. She states there is swelling and tenderness to touch to the area. She reports she believes she was bit by a spider. She denies any fever/chills/sweats or difficulty moving her spine. -: Sudden - Related Data Home Medications Medication Instructions Recorded Confirmed Last Taken Lisinopril/Hydrochlorothiazide 07/16/13 07/16/13 07/16/13 [Zestoretic 10-12.5 mg] Topiramate [Topamax] 25 mg PO 07/16/13 07/16/13 Unknown traMADoL [Ultram 50 MG tab] 50 mg 07/16/13 07/16/13 07/16/13 Previous Rx's Medication Instructions Recorded Last Taken Type Acetaminophen/Codeine [Tylenol #3] 1 tab PO Q6H PRN #12 tab 07/16/13 Unknown Rx Ciprofloxacin HCl [Cipro] 500 mg PO Q12H #30 tab 07/16/13 Unknown Rx Azithromycin [Zithromax Z-RACHAEL] 250 mg PO DAILY #6 tablet 01/30/14 Unknown Rx Cyclobenzaprine HCl [Flexeril 5 MG 5 mg PO TID #14 tab 07/04/17 Unknown Rx TAB] Naproxen [Naprosyn] 500 mg PO BID #10 tablet 07/04/17 Unknown Rx Fluticasone [Flonase] 2 spray NS QDAY #1 bottle 11/23/17 Unknown Rx NIFEdipine [] 90 mg PO DAILY #30 tablet 11/23/17 Unknown Rx amLODIPine 5 mg PO DAILY 30 Days #30 tab 11/16/18 Unknown Rx hydroCHLOROthiazide [HCTZ] 25 mg PO QDAY 30 Days #30 tablet 11/16/18 Unknown Rx Meclizine [Antivert] 12.5 mg PO BID PRN #10 tablet 08/10/19 Unknown Rx Acetaminophen [Non-Aspirin Pain 1,000 mg PO Q6H PRN #30 tablet 10/18/20 Unknown Rx Relief] Clindamycin [Clindamycin CAP] 300 mg PO Q8H 7 Days #21 cap 10/18/20 Unknown Rx diphenhydrAMINE [Benadryl CAP] 25 mg PO Q8HR PRN #30 capsule 10/18/20 Unknown Rx predniSONE [Deltasone] 20 mg PO QDAY #5 tab 10/18/20 Unknown Rx Acetaminophen/Codeine [Tylenol 1 tab PO Q8H PRN #8 tab 03/03/21 Unknown Rx /Codeine # 3 tab] Clindamycin [Clindamycin CAP] 300 mg PO Q6H 10 Days #40 capsule 03/03/21 Unknown Rx Ibuprofen [Motrin 800 MG tab] 800 mg PO Q8HR PRN #20 tablet 03/03/21 Unknown Rx Mupirocin [Bactroban 2% OINT] 1 applic TP TID 7 Days #1 tube 03/03/21 Unknown Rx Allergies Allergy/AdvReac Type Severity Reaction Status Date / Time amoxicillin [Amoxicillin] Allergy Rash Verified 10/18/20 14:59 ED Review of Systems ROS: Stated complaint: BUMP IN BACK Other details as noted in HPI Constitutional: denies: chills, diaphoresis, fever, malaise Cardiovascular: denies: chest pain Musculoskeletal: as per HPI Skin: change in color. denies: rash ED Past Medical Hx - Past Medical History Previous Medical History?: Yes Hx Hypertension: Yes Hx Headaches / Migraines: Yes Additional medical history: Peripartum cardiomyopathy - Surgical History Past Surgical History?: Yes Additional Surgical History: fibriod tumor, tubal ligation, UFE - Social History Smoking Status: Never Smoker Substance Use Type: None - Medications Home Medications: Home Medications Medication Instructions Recorded Confirmed Last Taken Type Acetaminophen/Codeine [Tylenol #3] 1 tab PO Q6H PRN #12 tab 07/16/13 Unknown Rx Ciprofloxacin HCl [Cipro] 500 mg PO Q12H #30 tab 07/16/13 Unknown Rx Lisinopril/Hydrochlorothiazide 07/16/13 07/16/13 07/16/13 History [Zestoretic 10-12.5 mg] Topiramate [Topamax] 25 mg PO 07/16/13 07/16/13 Unknown History traMADoL [Ultram 50 MG tab] 50 mg 07/16/13 07/16/13 07/16/13 History Azithromycin [Zithromax Z-RACHAEL] 250 mg PO DAILY #6 tablet 01/30/14 Unknown Rx Cyclobenzaprine HCl [Flexeril 5 MG 5 mg PO TID #14 tab 07/04/17 Unknown Rx TAB] Naproxen [Naprosyn] 500 mg PO BID #10 tablet 07/04/17 Unknown Rx Fluticasone [Flonase] 2 spray NS QDAY #1 bottle 11/23/17 Unknown Rx NIFEdipine [] 90 mg PO DAILY #30 tablet 11/23/17 Unknown Rx amLODIPine 5 mg PO DAILY 30 Days #30 tab 11/16/18 Unknown Rx hydroCHLOROthiazide [HCTZ] 25 mg PO QDAY 30 Days #30 tablet 11/16/18 Unknown Rx Meclizine [Antivert] 12.5 mg PO BID PRN #10 tablet 08/10/19 Unknown Rx Acetaminophen [Non-Aspirin Pain 1,000 mg PO Q6H PRN #30 tablet 10/18/20 Unknown Rx Relief] Clindamycin [Clindamycin CAP] 300 mg PO Q8H 7 Days #21 cap 10/18/20 Unknown Rx diphenhydrAMINE [Benadryl CAP] 25 mg PO Q8HR PRN #30 capsule 10/18/20 Unknown Rx predniSONE [Deltasone] 20 mg PO QDAY #5 tab 10/18/20 Unknown Rx Acetaminophen/Codeine [Tylenol 1 tab PO Q8H PRN #8 tab 03/03/21 Unknown Rx /Codeine # 3 tab] Clindamycin [Clindamycin CAP] 300 mg PO Q6H 10 Days #40 capsule 03/03/21 Unknown Rx Ibuprofen [Motrin 800 MG tab] 800 mg PO Q8HR PRN #20 tablet 03/03/21 Unknown Rx Mupirocin [Bactroban 2% OINT] 1 applic TP TID 7 Days #1 tube 03/03/21 Unknown Rx ED Physical Exam - General Limitations: No Limitations General appearance: alert, in no apparent distress, obese - Head Head exam: Present: atraumatic, normocephalic - Eye Eye exam: Present: normal appearance - Respiratory Respiratory exam: Absent: respiratory distress - Cardiovascular Cardiovascular Exam: Present: regular rate - Neurological Exam Neurological exam: Present: alert, oriented X3 - Psychiatric Psychiatric exam: Present: normal affect, normal mood - Skin Skin exam: Present: warm, dry, intact, other (Mild erythema with approximately 4 cm of induration noted to right mid paraspinal area; there is a very tiny central fluctuance noted about a tiny scabbed area; no cellulitic changes noted) ED Course Vital Signs 03/02/21 22:07 Temperature 99.1 F Pulse Rate 95 H Respiratory 18 Rate Blood Pressure 133/94 O2 Sat by Pulse 99 Oximetry - I & D Back Site: Right paraspinal thoracic Blade Size: 11 I & D Procedure: betadine prep Progress: 8 cc of lidocaine 1% without epi used to anesthetize area. Minimal purulent drainage obtained from wound. Patient tolerated procedure well without any immediate complications. She has normal range of motion of the spine and denies any complaints post procedure. ED Medical Decision Making - Medical Decision Making 40-year-old -[place] female patient presents with complaints of right mid back pain starting yesterday. She states there is swelling and tenderness to touch to the area. She reports she believes she was bit by a spider. She denies any fever/chills/sweats or difficulty moving her spine. Incision and drainage performed. Ultrasound used to assess for deeper pus pocket-none found. Discussed wound care and signs and symptoms that should prompt immediate return to the emergency department in detail patient verbalizes understanding. She is to follow-up with primary care in 3 to 5 days. Critical care attestation.: If time is entered above; I have spent that time in minutes in the direct care of this critically ill patient, excluding procedure time. ED Disposition Clinical Impression: Abscess of back Disposition: 01 HOME / SELF CARE / HOMELESS Is pt being admited?: No Condition: Stable Instructions: Incision and Drainage, Care After, Skin Abscess Prescriptions: Mupirocin [Bactroban 2% OINT] 1 applic TP TID 7 Days #1 tube Clindamycin [Clindamycin CAP] 300 mg PO Q6H 10 Days #40 capsule Ibuprofen [Motrin 800 MG tab] 800 mg PO Q8HR PRN #20 tablet PRN Reason: pain Acetaminophen/Codeine [Tylenol /Codeine # 3 tab] 1 tab PO Q8H PRN #8 tab PRN Reason: Pain , Severe (7-10) Referrals: [facility] [Provider Group] - 3-5 Days Forms: Work/School Release Form(ED)
== END 2021-03-03 00:51 | disposition home or self-care (01) ==
LOC: ED 19:52
DX: L02.212 Cutaneous abscess of back [any part, except buttock and flank] (principal); Z88.1 Allergy status to other antibiotic agents; I10 Essential (primary) hypertension
CPT/HCPCS: 99281